=== PATIENT | female | born 1990 | race Caucasian/White ===

== ENCOUNTER 2019-03-10 15:12 | Emergency (ER) | payer SELFPAY ==
--- NOTE | 2019-03-10 15:33 | EDM.PDOC ---
ED HPI GENERAL MEDICAL PROBLEM - General Chief Complaint: ENT Problem Stated Complaint: FOOD STUCK IN THROAT Time Seen by Provider: 03/10/19 15:17 - History of Present Illness INITIAL COMMENTS - FREE TEXT/NARRATIVE: HISTORY AND PHYSICAL: History of present illness: Patient is a 28-year-old white female presents with concern of esophageal food bolus she has not had this episode in the past she states this occurred last night which he was even states she's been able take any saliva liquid or other fluids subsequent. Review of systems: As per history of present illness and below otherwise all systems reviewed and negative. Past medical history: As per history of present illness and as reviewed below otherwise noncontributory. Surgical history: As per history of present illness and as reviewed below otherwise noncontributory. Social history: No reported history of drug or alcohol abuse. Family history: As per history of present illness and as reviewed below otherwise noncontributory. Physical exam: HEENT: Atraumatic, normocephalic, pupils reactive, negative for conjunctival pallor or scleral icterus, mucous membranes moist, throat clear, neck supple, nontender, trachea midline. Lungs: Clear to auscultation, breath sounds equal bilaterally, chest nontender. Heart: S1S2, regular, negative for clicks, rubs, or JVD. Abdomen: Soft, nondistended, nontender. Negative for masses or hepatosplenomegaly. Negative for costovertebral tenderness. Pelvis: Stable nontender. Genitourinary: Deferred. Rectal: Deferred. Extremities: Atraumatic, negative for cords or calf pain. Neurovascular unremarkable. Neuro: Awake, alert, oriented. Cranial nerves II through XII unremarkable. Cerebellum unremarkable. Motor and sensory unremarkable throughout. Exam nonfocal. Diagnostics: Chest x-ray Therapeutics: Saline 1 L bolus glucagon 1 mg IV Impression: #1 esophageal food bolus Definitive disposition and diagnosis as appropriate pending reevaluation and review of above. top of stomach Pain Score (Numeric/FACES): 7 - Related Data Allergies Allergy/AdvReac Type Severity Reaction Status Date / Time No Known Allergies Allergy Verified 03/10/19 15:22 Home Meds: Home Meds . [No Known Home Meds] 03/10/19 [History] Past Medical History - Past Health History Medical/Surgical History: Denies Medical/Surgical History Social & Family History - Family History Family Medical History: Noncontributory - Tobacco Use Smoking Status *Q: Never Smoker - Recreational Drug Use Recreational Drug Use: No ED ROS GENERAL - Review of Systems Review Of Systems: Comprehensive ROS is negative, except as noted in HPI. ED EXAM, GENERAL - Physical Exam Exam: See Below (See dictation) Course - Vital Signs Last Recorded V/S: Last Vital Signs Temp 96.7 F 03/10/19 15:20 Pulse 94 03/10/19 15:20 Resp 20 03/10/19 15:20 BP 165/107 H 03/10/19 15:20 Pulse Ox 99 03/10/19 15:20 - Orders/Labs/Meds Orders: Active Orders 24 hr Category Date Time Status Sodium Chloride 0.9% [Normal Saline] 1,000 ml Med 03/10/19 15:35 Active IV .Bolus Medication Orders Sodium Chloride (Normal Saline) 1,000 mls @ 999 mls/hr IV .Bolus ONE Stop: 03/10/19 16:35 Last Admin: 03/10/19 15:40 Dose: 999 mls/hr Meds: Medications Generic Name Dose Route Start Last Admin Trade Name Freq PRN Reason Stop Dose Admin Sodium Chloride 1,000 mls @ 999 mls/hr 03/10/19 15:35 03/10/19 15:40 Normal Saline IV 03/10/19 16:35 999 mls/hr .Bolus ONE Administration Discontinued Medications Generic Name Dose Route Start Last Admin Trade Name Freq PRN Reason Stop Dose Admin Glucagon 1 mg 03/10/19 15:35 03/10/19 15:42 Glucagen IVPUSH 03/10/19 15:36 1 mg ONETIME ONE Administration Departure - Departure Time of Disposition: 15:31 Disposition: Still A Patient 28 Condition: Good Clinical Impression: Odynophagia - Discharge Information Referrals: PCP,None [Primary Care Provider] - Forms: ED Department Discharge Additional Instructions: The following information is given to patients seen in the emergency department who are being discharged to home. This information is to outline your options for follow-up care. We provide all patients seen in our emergency department with a follow-up referral. The need for follow-up, as well as the timing and circumstances, are variable depending upon the specifics of your emergency department visit. If you don't have a primary care physician on staff, we will provide you with a referral. We always advise you to contact your personal physician following an emergency department visit to inform them of the circumstance of the visit and for follow-up with them and/or the need for any referrals to a consulting specialist. The emergency department will also refer you to a specialist when appropriate. This referral assures that you have the opportunity for follow-up care with a specialist. All of these measure are taken in an effort to provide you with optimal care, which includes your follow-up. Under all circumstances we always encourage you to contact your private physician who remains a resource for coordinating your care. When calling for follow-up care, please make the office aware that this follow-up is from your recent emergency room visit. If for any reason you are refused follow-up, please contact the [facility] Emergency Department at and asked to speak to the emergency department charge nurse. [facility] [address] [place] [id number] [place] [address] [facility] - General Surgery, Dr. Hsu Professional Building [address] [place] [address], [address] [place] [address] 1. Remain on liquid diet for 24 hours. 2. You can alternate ibuprofen and Tylenol as directed for pain and discomfort. 3. Follow up with the general surgery, Dr. Hsu as discussed. Return to the ED as needed and as discussed.
[2019-03-10] MEDS ORDERED: Glucagon,Human Recombinant 1 MG Vial IVPUSH ONE (15:35)
[2019-03-10] MEDS ORDERED: Sodium Chloride 0.9% 1,000 ML IV ONE (15:35)
--- NOTE | 2019-03-10 17:17 | CONS ---
DATE OF CONSULTATION: DATE OF : 1990 PRIMARY CARE PHYSICIAN: None PCP Consult from Dr. Rodriguez in emergency room. Concerning question is food stuck in the throat. HISTORY OF PRESENT ILLNESS: The patient is a 28-year-old lady and ate a pizza stick and then stuck in the chest for the last 18 hours and the patient is not able to swallow her own saliva and is miserable. Seen in the emergency room and Surgery was consulted for possible EGD with foreign body extraction. The patient denied prior episode and currently denies short of breath or chest pain. ALLERGIES: Please refer to nursing note for details. MEDICATION: Please refer to nursing note for details. Abdominal surgery not in the past history. FAMILY HISTORY: Noncontributory. SOCIAL HISTORY: Denied tobacco or alcohol abuse. PHYSICAL EXAMINATION: GENERAL: A very pleasant lady, smiles to the doctor, in no acute distress. HEENT: Normocephalic, atraumatic. Sclerae anicteric. LUNGS: Clear to auscultation. HEART: Regular rate and rhythm. ABDOMEN: Soft, nondistended. No pulsating tender midline abdominal structure. No surgical scar and epigastrium nontender. IMPRESSION AND PLAN: Food stuck in the throat and got some glucagon treatment and apparently it resolved. The patient is able to swallow according to her first time since last night and very happy about it. Recommend the patient to be on liquid diet for 24 hours before resuming solid food and also there is something called fork and knife. Follow up with me on an as-needed basis and maybe there is a benefit to put the camera down and do an EGD if it happen often. The patient voiced understanding. As always, thank you for the kind referral. MARK ANTHONY GUTIERREZ /[id number]
== END 2019-03-10 16:40 | disposition home or self-care (01) ==
LOC: MW.ED 15:12
DX: T18.128A Food in esophagus causing other injury, initial encounter (principal); X58.XXXA Exposure to other specified factors, initial encounter
CPT/HCPCS: 96360; 99283; J1610; J7040

== ENCOUNTER 2020-12-19 05:30 | Day surgery (SDC) | payer SELFPAY ==
[2020-12-19] MEDS ORDERED: Glucagon,Human Recombinant 1 MG Vial IVPUSH ONE (05:47)
--- NOTE | 2020-12-19 05:57 | EDM.PDOC ---
<Florentin Payne - Last Filed: 12/19/20 06:42> ED HPI GENERAL MEDICAL PROBLEM - General Chief Complaint: Abdominal Pain Stated Complaint: HASN'T BEEN ABLE TO SWALLOW IN 2 DAYS Time Seen by Provider: 12/19/20 05:33 - History of Present Illness INITIAL COMMENTS - FREE TEXT/NARRATIVE: 30-year-old female with prior history of esophageal food impaction that resolved with glucagon presents with concern for esophageal food impaction. Patient was eating hot dogs and Monegasque fries for dinner on December 17. She felt something get stuck in the subxiphoid area. She reports she has been unable to tolerate solids or liquids since that time. She has tried water and coke. Last night she had a very small sip of Coke that seem to stay down but then she tried a a larger sip and it was regurgitated up. She has an uncomfortable subxiphoid pressure but no severe pain no shortness of breath no sore throat cough no fevers no neck pain or stiffness. In February 2019 she had a similar episode though that discomfort was higher up in her esophagus. She was seen by Dr. Salomon here at this facility while she was in the ER but her symptoms resolved with 1 mg of IV glucagon just prior to his arrival and so endoscopy was deferred. Abdomen Pain Score (Numeric/FACES): 3 - Related Data Allergies Allergy/AdvReac Type Severity Reaction Status Date / Time No Known Allergies Allergy Verified 03/10/19 15:22 Home Meds: Home Meds . [No Known Home Meds] 03/10/19 [History] Past Medical History - Past Health History Medical/Surgical History: Denies Medical/Surgical History - Infectious Disease History Infectious Disease History: Reports: Chicken Pox Social & Family History - Family History Family Medical History: No Pertinent Family History - Tobacco Use Second Hand Smoke Exposure: No - Caffeine Use Caffeine Use: Reports: None - Recreational Drug Use Recreational Drug Use: No ED ROS GENERAL - Review of Systems Review Of Systems: See Below Free Text/Narrative/Comment: General: No fever. ENT: No sore throat. Neck: No neck stiffness. Respiratory: No shortness of breath. Cardiac: No chest pain. Gastrointestinal: Per HPI Musculoskeletal: No myalgias/arthralgias. Neurologic: No headache. ED EXAM, GENERAL - Physical Exam Exam: See Below Free Text/Narrative:: General Appearance: No acute distress, appears comfortable Skin: No rash HEENT: Normocephalic/atraumatic, sclera anicteric, mucous membranes dry Neck: Normal range of motion Chest and Lungs: Bilateral breath sounds, clear to auscultation Cardiovascular: Regular rate and rhythm, no murmur Abdomen: Soft, non-tender Musculoskeletal: No edema or tenderness Neurologic: Awake, alert, no obvious deficits, moving all extremities Psychiatric: Appropriate, cooperative Departure - Departure Disposition: Home, Self-Care 01 Condition: Good Clinical Impression: Food impaction of esophagus - Discharge Information Referrals: PCP,None [Primary Care Provider] - Forms: ED Department Discharge Additional Instructions: The following information is given to patients seen in the emergency department who are being discharged to home. This information is to outline your options for follow-up care. We provide all patients seen in our emergency department with a follow-up referral. The need for follow-up, as well as the timing and circumstances, are variable depending upon the specifics of your emergency department visit. If you don't have a primary care physician on staff, we will provide you with a referral. We always advise you to contact your personal physician following an emergency department visit to inform them of the circumstance of the visit and for follow-up with them and/or the need for any referrals to a consulting specialist. The emergency department will also refer you to a specialist when appropriate. This referral assures that you have the opportunity for follow-up care with a specialist. All of these measure are taken in an effort to provide you with optimal care, which includes your follow-up. Under all circumstances we always encourage you to contact your private physician who remains a resource for coordinating your care. When calling for follow-up care, please make the office aware that this follow-up is from your recent emergency room visit. If for any reason you are refused follow-up, please contact the [facility] Emergency Department at and asked to speak to the emergency department charge nurse. Please follow up with your primary care physician. If you do not have a primary care physician, see below: [facility] [address] [place] [id number] [facility] [address] [place] [id number] [facility] [address] [place] [id number] Sepsis Event Note (ED) - Evaluation Sepsis Screening Result: No Definite Risk - Assessment/Plan Assessment:: 30-year-old female presented with signs and symptoms that would be consistent with esophageal food impaction. Globus sensation a consideration as well but felt less likely given the location and the fact that she continues to describe liquid intolerance. That said she does appear to be in her own secretions though she does appear clinically dehydrated with dry mucous membranes. Patient had success with glucagon in the past given her dry mucous membranes we will give her 1 mg of IV glucagon and 1 L of IV fluid. If this resolves her symptoms could try p.o. trial at that time. If not we will discuss with general surgery. Patient has benign abdominal exam no findings of peritonitis. 0645: Patient felt relatively comfortable following the glucagon. However on p.o. trial with water she was unable to successfully tolerated and regurgitated it into the basin provided. Covid swab will be taken and will contact general surgery. Patient discussed with Dr. Hayes. Agrees with COIVD swab. He will come evaluate the patient and will plan for endoscopy this AM. Pt signed out to daytime provider pending this and final disposition. <Vu Becerra - Last Filed: 12/19/20 07:56> Course - Vital Signs Last Recorded V/S: Last Vital Signs Temp 97 F 12/19/20 05:42 Pulse 94 12/19/20 05:42 Resp 20 12/19/20 05:42 BP 157/115 H 12/19/20 05:42 Pulse Ox 96 12/19/20 05:42 - Orders/Labs/Meds Orders: Active Orders 24 hr Category Date Time Status Sodium Chloride 0.9% [Normal Saline] 1,000 ml Med 12/19/20 06:00 Active IV ASDIRECTED Medication Orders Sodium Chloride (Normal Saline) 1,000 mls @ 999 mls/hr IV ASDIRECTED TANIA Last Admin: 12/19/20 06:10 Dose: 999 mls/hr Documented by: NELLY Labs: Laboratory Tests 12/19/20 Range/Units 06:45 SARS-CoV-2 RNA (KHURRAM) NEGATIVE (NEGATIVE) Meds: Medications Generic Name Dose Route Start Last Admin Trade Name Freq PRN Reason Stop Dose Admin Sodium Chloride 1,000 mls @ 999 mls/hr 12/19/20 06:00 12/19/20 06:10 Normal Saline IV 999 mls/hr ASDIRECTED TANIA Administration Discontinued Medications Generic Name Dose Route Start Last Admin Trade Name Freq PRN Reason Stop Dose Admin Glucagon 1 mg 12/19/20 05:47 12/19/20 06:10 Glucagon,Human Recombinant 1 Mg Vial IVPUSH 12/19/20 05:48 1 mg ONETIME ONE Administration - Re-Assessments/Exams Free Text/Narrative Re-Assessment/Exam: 12/19/20 07:56 Dr. Hayes is in the emergency department to evaluate patient. Will discharge patient to same-day surgery. Departure - Departure Time of Disposition: 07:56 Condition: Good Sepsis Event Note (ED) - Focused Exam Vital Signs: Vital Signs Temp Pulse Resp BP Pulse Ox 12/19/20 05:42 97 F 94 20 157/115 H 96
[2020-12-19] MEDS ORDERED: Sodium Chloride 0.9% 1,000 ML IV SCH ×3 (06:00→08:30)
[2020-12-19] MEDS ORDERED: Lactated Ringers 1,000 ML IV SCH ×3 (08:30→11:00)
--- NOTE | 2020-12-19 08:30 | PCM.CONS ---
H&P History of Present Illness - General Date of Service: 12/19/20 Admit Problem/Dx: Esophageal foreign body obstruction Source of Information: Patient History Limitations: Reports: No Limitations - History of Present Illness Initial Comments - Free Text/Narative: 30 y/o female who developed foreign body obstruction of the esophagus Agustín night after eating a hot dog. She is unable to keep liquids down. She had a similar problem in 2019. With medication it passed and she was never scoped, despite the recommendation to do so. She has had no problems in the past 2 years until now. Symptom Onset Date: 12/17/20 Duration of Symptoms: Reports: Day(s):, Getting Worse Location: Reports: Chest Quality: Reports: Pressure Severity: Moderate Improves with: Reports: None Worsens with: Reports: Eating Associated Symptoms: Reports: No Other Symptoms Abdomen Pain Score (Numeric/FACES): 3 - Related Data Allergies/Adverse Reactions: Allergies Allergy/AdvReac Type Severity Reaction Status Date / Time No Known Allergies Allergy Verified 03/10/19 15:22 Home Medications: Home Meds . [No Known Home Meds] 03/10/19 [History] Past Medical History - Past Health History Medical/Surgical History: Denies Medical/Surgical History Other Gastrointestinal History: Previous history of fb obstruction of the esophagus. - Infectious Disease History Infectious Disease History: Reports: Chicken Pox Social & Family History - Family History Family Medical History: No Pertinent Family History - Tobacco Use Second Hand Smoke Exposure: No - Caffeine Use Caffeine Use: Reports: None - Recreational Drug Use Recreational Drug Use: No H&P Review of Systems - Review of Systems: Review Of Systems: See Below General: Reports: Decreased Appetite. Denies: Fever, Chills HEENT: Reports: No Symptoms Pulmonary: Reports: No Symptoms Cardiovascular: Reports: No Symptoms Gastrointestinal: Reports: Anorexia, Decreased Appetite, Difficulty Swallowing. Denies: Abdominal Pain, Constipation, Diarrhea Genitourinary: Reports: No Symptoms Musculoskeletal: Reports: No Symptoms Skin: Reports: No Symptoms Psychiatric: Reports: No Symptoms Neurological: Reports: No Symptoms Hematologic/Lymphatic: Reports: No Symptoms Immunologic: Reports: Food Allergy (walleye) Exam - Exam Exam: See Below - Vital Signs Vital Signs: Last Vital Signs Temp 97 F 12/19/20 05:42 Pulse 94 12/19/20 05:42 Resp 20 12/19/20 05:42 BP 157/115 H 12/19/20 05:42 Pulse Ox 96 12/19/20 05:42 Weight: 186 lb - Exam General: Alert, Oriented, Cooperative, Mild Distress HEENT: Conjunctiva Clear, Pupils Equal, Pupils Reactive. No: Scleral Icterus Neck: Supple, Trachea Midline Lungs: Clear to Auscultation, Normal Respiratory Effort Cardiovascular: Regular Rate, Regular Rhythm. No: Tachycardia GI/Abdominal Exam: Normal Bowel Sounds, Soft, Non-Tender (Female) Exam: Deferred Rectal (Female) Exam: Deferred Back Exam: Normal Inspection Extremities: Normal Inspection, Normal Range of Motion, Non-Tender Skin: Warm, Dry, Intact Neurological: Cranial Nerves Intact, Reflexes Equal Bilateral Psychiatric: Alert, Normal Affect, Normal Mood - Patient Data Lab Results Last 24 hrs: Laboratory Results - last 24 hr 12/19/20 Range/Units 06:45 SARS-CoV-2 RNA (KHURRAM) NEGATIVE (NEGATIVE) Sepsis Event Note - Evaluation Sepsis Screening Result: No Definite Risk - Focused Exam Vital Signs: Vital Signs Temp Pulse Resp BP Pulse Ox 12/19/20 05:42 97 F 94 20 157/115 H 96 Consult PN Assessment/Plan Procedures: Procedures EMERGENCY DEPT VISIT (03/10/19) HYDRATION IV INFUSION INIT (03/10/19) (1) Food impaction of esophagus SNOMED Code(s): 405438252 Code(s): T18.128A - FOOD IN ESOPHAGUS CAUSING OTHER INJURY, INITIAL ENCOUNTER Priority: High Current Visit: Yes Qualifiers: Encounter type: initial encounter Qualified Code(s): T18.128A - Food in esophagus causing other injury, initial encounter Problem List Initiated/Reviewed/Updated: Yes My Orders Last 24 Hours: My Active Orders 12/19/20 08:22 Oxygen Therapy [RC] PRN Vital Signs [RC] PER UNIT ROUTINE Resuscitation Status Routine 12/19/20 08:30 Lactated Ringers @ 125 MLS/HR(1000ml) Lactated Ringers [Ringers, Lactated] 1,000 ml IV ASDIRECTED Sodium Chloride 0.9% @ 125 MLS/HR (1,000ml) Sodium Chloride 0.9% [Normal Saline] 1,000 ml IV ASDIRECTED 12/19/20 Dinner Nothing per Oral After Midnight Diet [DIET] Plan: Esophagogastroduodenoscopy with removal of esophageal foreign body and biopsy of stomach. The operative procedure, along with the risks, including, but not limited to bleeding, perforation and reaction to medication have been reviewed with the patient. She voices understanding, has had her questions answered and wishes to proceed. COVID test is negative.
--- NOTE | 2020-12-19 09:15 | PCM.PREANE ---
Preanesthetic Assessment - Procedure Proposed Procedure: EGD for suspected food bolus - Anesthesia/Transfusion/Family Hx Anesthesia History: No Prior Anesthesia Family History of Anesthesia Reaction: No - Review of Systems General: No Symptoms Pulmonary: No Symptoms Cardiovascular: No Symptoms Gastrointestinal: No Symptoms Neurological: No Symptoms Other: Reports: None - Physical Assessment NPO Status Date: 12/17/20 (last solid, has sipped liquids since) NPO Status Time: 19:00 (food bolus suspected) Vital Signs: Last Vital Signs Temp 97.0 F 12/19/20 08:24 Pulse 73 12/19/20 08:24 Resp 18 12/19/20 08:24 BP 173/105 H 12/19/20 08:24 Pulse Ox 97 12/19/20 08:24 Height: 5 ft 9 in Weight: 84.368 kg ASA Class: 1E Mental Status: Alert & Oriented x3 Airway Class: Mallampati = 2 Dentition: Reports: Normal Dentition Thyro-Mental Finger Breadths: 3 Mouth Opening Finger Breadths: 3 ROM/Head Extension: Full Lungs: Clear to Auscultation, Normal Respiratory Effort Cardiovascular: Regular Rate, Regular Rhythm - Lab Values: Laboratory Last Values SARS-CoV-2 RNA (KHURRAM) NEGATIVE (NEGATIVE) 12/19/20 06:45 - Allergies Allergies/Adverse Reactions: Allergies Allergy/AdvReac Type Severity Reaction Status Date / Time No Known Allergies Allergy Verified 03/10/19 15:22 - Acknowledgements Anesthesia Type Planned: General Anesthesia Pt an Appropriate Candidate for the Planned Anesthesia: Yes Alternatives and Risks of Anesthesia Discussed w Pt/Guardian: Yes Pt/Guardian Understands and Agrees with Anesthesia Plan: Yes PreAnesthesia Questionnaire - Past Health History Medical/Surgical History: Denies Medical/Surgical History Other Gastrointestinal History: Previous history of fb obstruction of the esophagus. - Infectious Disease History Infectious Disease History: Reports: Chicken Pox - SUBSTANCE USE Tobacco Use Within Last Twelve Months: No Second Hand Smoke Exposure: No Recreational Drug Use History: No - HOME MEDS Home Medications: Home Meds . [No Known Home Meds] 03/10/19 [History] - CURRENT (IN HOUSE) MEDS Current Meds: Current Medications Sodium Chloride (Normal Saline) 1,000 mls @ 999 mls/hr IV ASDIRECTED [facility] Last Admin: 12/19/20 06:10 Dose: 999 mls/hr Documented by: Lactated Ringer's (Ringers, Lactated) 1,000 mls @ 125 mls/hr IV ASDIRECTED TANIA Sodium Chloride (Normal Saline) 1,000 mls @ 125 mls/hr IV ASDIRECTED TANIA Discontinued Medications Glucagon (Glucagon,Human Recombinant 1 Mg Vial) 1 mg IVPUSH ONETIME ONE Stop: 12/19/20 05:48 Last Admin: 12/19/20 06:10 Dose: 1 mg Documented by: Lactated Ringer's (Ringers, Lactated) 1,000 mls @ 125 mls/hr IV ASDIRECTED TANIA Sodium Chloride (Normal Saline) 1,000 mls @ 125 mls/hr IV ASDIRECTED TANIA
[2020-12-19] MEDS ORDERED: Lidocaine 2% 5 ML SDV ONE (09:20)
[2020-12-19] MEDS ORDERED: Propofol 200 MG/20 ML SDV ONE (09:20)
[2020-12-19] MEDS ORDERED: fentaNYL 100 MCG/2 ML SDV ONE ×2 (09:20→10:02)
[2020-12-19] MEDS ORDERED: Ondansetron 4 MG/2 ML SDV ONE (09:22)
--- NOTE | 2020-12-19 11:00 | PCM.POSTAN ---
POST ANESTHESIA ASSESSMENT - MENTAL STATUS Mental Status: Alert, Oriented - VITAL SIGNS Vital Signs: Last Vital Signs Temp 97.0 F 12/19/20 08:24 Pulse 73 12/19/20 08:24 Resp 18 12/19/20 08:24 BP 173/105 H 12/19/20 08:24 Pulse Ox 97 12/19/20 08:24 - RESPIRATORY Respiratory Status: Respiratory Rate WNL, Airway Patent, O2 Saturation Stable - CARDIOVASCULAR CV Status: Pulse Rate WNL, Blood Pressure Stable - GASTROINTESTINAL GI Status: No Symptoms - PAIN Pain Score: 0 - POST OP HYDRATION Hydration Status: Adequate & Stable
--- NOTE | 2020-12-19 11:01 | PCM.OPNOTE ---
- General Post-Op/Procedure Note Date of Surgery/Procedure: 12/19/20 Operative Procedure(s): Esophagogastroduodenoscopy with removal of esophageal foreign body and biopsy of gastric antrum. Pre Op Diagnosis: Foreign body obstruction of the esophagus Anesthesia Technique: General ET Tube (ASA IE) Primary Surgeon: Braydon Hayes Pretzel Packer: Susan Godoy Condition: Good Free Text/Narrative:: DICTATION [id number] CPT CODE 24852
--- NOTE | 2020-12-19 11:05 | PCM48HPAN ---
Post Anesthesia Note - EVALUATION WITHIN 48HRS OF ANESTHETIC Vital Signs in Normal Range: Yes Patient Participated in Evaluation: Yes Respiratory Function Stable: Yes Airway Patent: Yes Cardiovascular Function Stable: Yes Hydration Status Stable: Yes Pain Control Satisfactory: Yes Nausea and Vomiting Control Satisfactory: Yes Mental Status Recovered: Yes Vital Signs: Last Vital Signs Temp 97.0 F 12/19/20 08:24 Pulse 73 12/19/20 08:24 Resp 18 12/19/20 08:24 BP 173/105 H 12/19/20 08:24 Pulse Ox 97 12/19/20 08:24 - COMMENTS/OBSERVATIONS Free Text/Narrative:: Pt doing well post-op. VSS. No apparent anesthetic complications. Dr. Rashi Garcia
--- NOTE | 2020-12-19 16:01 | OR ---
SURGEON: Braydon Hayes M.D. DATE OF PROCEDURE: 12/19/2020 OPERATION PERFORMED: Removal of esophageal foreign body obstruction. PRIMARY SURGEON: Braydon Hayes M.D. GAS MASK ASSEMBLER: News Intern: Susan Godoy, nurse practitioner student. ANESTHESIA: General endotracheal. ASA CLASSIFICATION: IE. PREOPERATIVE DIAGNOSIS: Foreign body obstruction of the esophagus. POSTOPERATIVE DIAGNOSIS: Foreign body obstruction of the esophagus. DESCRIPTION OF PROCEDURE: The patient was taken to the operating room and placed on the operating table in the supine position. Time-out was called for appropriate identification of the patient and procedure. COVID test and beta-hCG were negative. Following satisfactory attainment of general endotracheal anesthesia, the gastroscope was inserted into the oropharynx and subsequently into the esophagus down to approximately 30 to 35 cm, where a large foreign body obstruction was noted. With great difficulty and using a combination of [employer], three-prong graspers, and biopsy forceps, I was eventually able to clear the esophageal obstruction. This certainly had the appearance of meat and direct marketing representative specimens were obtained. Once the esophageal foreign body had been cleared, I was able to advance the scope into the stomach and subsequently duodenum. The gastroscope was then straightened and slowly withdrawn. The duodenum did show some mild to moderate inflammatory change. The patient demonstrated a significant gastritis, and antral biopsies were obtained to look for the presence of Helicobacter pylori. The gastroscope was retroflexed to visualize the proximal stomach and cardia. No acute inflammatory changes, ulcerations, or tumors were noted. The gastroscope was then straightened and slowly withdrawn. The GE junction did show very acute inflammatory process secondary to the fact that the foreign body had been present for at least 36 hours. There was no significant stricture noted today, as I was able to maneuver the scope through the distal esophagus once the foreign body was removed. The esophagus itself demonstrated good contractility. No mid or proximal lesions were identified. As the patient was intubated, I was not able to visualize the cords, but they were visualized at the time of intubation. The gastroscope was finally removed after making sure the foreign body was completely removed and the esophagus widely patent. The patient did tolerate the procedure well. Following emergence from anesthesia and extubation, the patient was taken to recovery room in stable condition. BRYNN / LGL /[id number]
== END 2020-12-19 11:45 | disposition home or self-care (01) ==
LOC: MW.ED 05:30 → MW.SDS 08:46
PROVIDERS: ATTEND Surgery
DX: T18.128A Food in esophagus causing other injury, initial encounter (principal); K29.00 Acute gastritis without bleeding; K29.50 Unspecified chronic gastritis without bleeding; B96.81 Helicobacter pylori [H. pylori] as the cause of diseases classified elsewhere; Z01.812 Encounter for preprocedural laboratory examination; Z20.822 Contact with and (suspected) exposure to COVID-19
CPT/HCPCS: 43239; 43247; 81025; 87635; 88302; 88305; 88342; 96374; 99284; J0330; J1610; J2405; J2704; J3010; J7030; 00731; U0002